=== PATIENT | female | born 1945 | race Two or more races ===

== ENCOUNTER 2023-06-24 06:53 | Inpatient (IN) | payer OTHER ==
[~2023-06-24] VITALS: Ht 157.5 cm; Wt 68.0 kg
[~2023-06-24 06:53] MED LIST: ATORVASTATIN CA20 MG PO; DICLOFENAC-MIS1 EAC3 PO; LOSARTAN-HCTZ1 EAC1 PO
[2023-06-25] MEDS ORDERED: OXYC1TAB9 PO (08:02)
[2023-06-25] MEDS ORDERED: DUI500 PO (08:02)
== END 2023-06-25 09:30 | disposition home or self-care (01) | DRG 483 ==
LOC: CIR.AMB 06:53 → SURG 09:15 → CIR.AMB 09:15 → EDSTATUS 09:15 → CIR.AMB 14:30 → SURG 19:36
PROVIDERS: ADMIT Orthopaedic Surgery Sports Medicine; ATTEND Orthopaedic Surgery Sports Medicine
PROC: 0LS40ZZ Reposition Left Upper Arm Tendon, Open Approach (ICD-10-PCS; 2023-06-24)
PROC: 0RRK00Z Replacement of Left Shoulder Joint with Reverse Ball and Socket Synthetic Substitute, Open Approach (ICD-10-PCS; principal; 2023-06-24 14:30)
DX: M19.012 Primary osteoarthritis, left shoulder (principal); Z20.822 Contact with and (suspected) exposure to COVID-19

== ENCOUNTER 2023-12-09 07:45 | Inpatient (IN) | payer OTHER, MEDICARE ==
[~2023-12-09] VITALS: Ht 152.4 cm; Wt 68.0 kg
[~2023-12-09 07:45] MED LIST changes: +DUI500 PO; +OXYC1TAB9 PO
[2023-12-09 09:08] LABS: PH,URINE 7.5 (5.0-8.0); URINE APPEARANCE Clear; URINE BILIRRUBIN Negative (NEGATIVE); URINE BLOOD Small; URINE COLOR Yellow; URINE GLUCOSE Negative (NEGATIVE); URINE LEUKOCYTE Negative; URINE NITRATE Negative; URINE PROTEIN 30 (NEGATIVE); URINE UROBILINOGEN 0.2 E.U./dl
[2023-12-09] MEDS ORDERED: PLAVIX75 MG PO (09:09)
[2023-12-09] MEDS ORDERED: PENTOXIFYLLINE400 MG PO (09:09)
[2023-12-09] MEDS ORDERED: CARVEDILOL3.125 MG (09:09)
[2023-12-09 09:14] LABS: URINE BACTERIA 17.5 uL (0.0-1933); URINE EPITHELIAL CELLS 3.8 uL (0.0-38.8); URINE RBC 25.4 uL (0.0-20.8)
[2023-12-09 09:28] LABS: URINE WBC 0.7 uL (0.0-23.2)
[2023-12-09 10:01] LABS: INR 0.95; PARTIAL THROMBOPLASTIN TIME 32.5 SECONDS (22.0-34.0)
[2023-12-14] MEDS ORDERED: ROSUVASTATIN CA20 MG (14:36)
[2023-12-14] MEDS ORDERED: GABAPENTIN300 M2 (14:36)
[2023-12-14] MEDS ORDERED: DONEPEZIL HCL10 MG (14:36)
[2023-12-14] MEDS ORDERED: CELECOXIB200 MG (14:36)
[2023-12-14] MEDS ORDERED: NIFEDIPINE ER30 M1 (14:36)
[2023-12-14 17:39] LABS: HEMATOCRIT 37.8 % (36.0-45.00); HEMOGLOBIN 12.7 g/dL (12.0-15.00); RED BLOOD COUNT 3.89 M/uL (4.00-6.00)
[2023-12-15 07:53] LABS: HEMOGLOBIN 11.7 g/dL (12.0-15.00); MEAN CELL VOLUME 95.8 fL (80.00-100.00); MEAN CORPUSCULAR HEMOGLOBIN 33.1 pg (27.00-32.0); MEAN CORPUSCULAR HGB CONC 34.6 g/dl (32.0-36.0); PLATELET COUNT 158 K/uL (150-450); RED BLOOD COUNT 3.55 M/uL (4.00-6.00); RED CELL DISTRIBUTION WIDTH 13.6 % (11.5-14.5)
[2023-12-16] MEDS ORDERED: BACTRIM DS TAB1 EACH PO (06:21)
[2023-12-16] MEDS ORDERED: XARELTO10 MG PO (06:21)
[2023-12-16] MEDS ORDERED: OXYC1TAB9 PO (06:21)
[2023-12-16] MEDS ORDERED: INTEGRA PLUS C1 EACH PO (06:21)
[2023-12-16 08:45] LABS: HEMATOCRIT 31.1 % (36.0-45.00); MEAN CORPUSCULAR HEMOGLOBIN 33.6 pg (27.00-32.0); MEAN CORPUSCULAR HGB CONC 34.6 g/dl (32.0-36.0); PLATELET COUNT 139 K/uL (150-450); RED BLOOD COUNT 3.21 M/uL (4.00-6.00)
[2023-12-16 08:47] LABS: HEMOGLOBIN 10.8 g/dL (12.0-15.00)
== END 2023-12-16 12:08 | disposition home or self-care (01) | DRG 470 ==
LOC: SURG 12-14 06:10 → O/R 12-14 06:10 → SURH 12-14 07:00 → SURG 12-14 16:34
PROVIDERS: ADMIT Orthopaedic Surgery Sports Medicine; ATTEND Orthopaedic Surgery Sports Medicine
PROC: 0SRD0J9 Replacement of Left Knee Joint with Synthetic Substitute, Cemented, Open Approach (ICD-10-PCS; principal; 2023-12-14 07:00)
DX: M17.12 Unilateral primary osteoarthritis, left knee (principal)

== ENCOUNTER 2025-02-06 12:29 | Inpatient (IN) | payer OTHER ==
[~2025-02-06] VITALS: Ht 157.5 cm; Wt 63.5 kg
[~2025-02-06 12:29] MED LIST changes: +BACTRIM DS TAB1 EACH PO; +CARVEDILOL3.125 MG; +CELECOXIB200 MG; +DONEPEZIL HCL10 MG; +GABAPENTIN300 M2; +INTEGRA PLUS C1 EACH PO; +NIFEDIPINE ER30 M1; +PENTOXIFYLLINE400 MG PO; +PLAVIX75 MG PO; +ROSUVASTATIN CA20 MG; +XARELTO10 MG PO
[2025-02-06] MEDS ORDERED: NORVASC10 MG PO (12:53)
[2025-02-06] MEDS ORDERED: TENORMIN25 MG PO (12:53)
[2025-02-06] MEDS ORDERED: TOPROL XL25 M1 PO (12:53)
[2025-02-06 12:59] VITALS: BP 170/86
[2025-02-10 09:26] LABS: RH POSITIVE
[2025-02-13] MEDS ORDERED: TRANEXAMIC ACID 100MG/1ML (1000MG) AMPUL IV ONE ×2 (13:00)
[2025-02-13] MEDS ORDERED: CEFAZOLIN SODIUM 1,000 MG VIAL IV ONE (13:00)
[2025-02-13] MEDS ORDERED: LIDOCAINE HCL 1%/EPINEPHRINE 20ML VIAL IJ SCH (13:00)
[2025-02-13] MEDS ORDERED: METHYLPREDNISOLONE ACETATE 80 MG/ML VIAL IU ONE (13:00)
[2025-02-13] MEDS ORDERED: KETOROLAC TROMETHAMINE 60 MG VIAL IM ONE (13:00)
[2025-02-13] MEDS ORDERED: SUGAMMADEX SODIUM 200 MG/2 ML VIAL IV ONE (15:15)
[2025-02-13] MEDS ORDERED: SODIUM CHLORIDE 0.45 % 1,000 ML IV SCH (15:30)
[2025-02-13] MEDS ORDERED: ONDANSETRON HCL 2 MG/ML VIAL IV PRN (15:30)
[2025-02-13] MEDS ORDERED: MORPHINE SULFATE 4 MG/ML VIAL IV ONE (15:30)
[2025-02-13] MEDS ORDERED: MORPHINE SULFATE 4 MG/ML VIAL IV PRN (15:30)
[2025-02-13] MEDS ORDERED: CEFAZOLIN SODIUM 1,000 MG VIAL IV SCH (18:00)
[2025-02-13 20:14] VITALS: BP 150/68; O2SAT 98
[2025-02-13] MEDS ORDERED: AMLODIPINE BESYLATE 10 MG TABLET PO SCH (21:00)
[2025-02-13] MEDS ORDERED: GENTAMICIN SULFATE 40 MG/ML VIAL IV SCH (21:00)
[2025-02-13 23:16] LABS: HEMOGLOBIN 12.9 g/dL (12.0-15.00); RED BLOOD COUNT 4.05 M/uL (4.00-6.00)
[2025-02-13 23:48] VITALS: BP 137/60; O2SAT 95
[2025-02-14 06:42] LABS: HEMATOCRIT 37.7 % (36.0-45.00); HEMOGLOBIN 12.8 g/dL (12.0-15.00); MEAN CELL VOLUME 94.9 fL (80.00-100.00); MEAN CORPUSCULAR HEMOGLOBIN 32.2 pg (27.00-32.0); MEAN CORPUSCULAR HGB CONC 33.9 g/dl (32.0-36.0); PLATELET COUNT 208 K/uL (150-450); RED BLOOD COUNT 3.97 M/uL (4.00-6.00); RED CELL DISTRIBUTION WIDTH 13.4 % (11.5-14.5)
[2025-02-14 08:00] VITALS: BP 154/64; O2SAT 95
[2025-02-14] MEDS ORDERED: SENNA/DOCUSATE SODIUM 1 TAB TABLET PO SCH (09:00)
[2025-02-14] MEDS ORDERED: ATORVASTATIN CALCIUM 20 MG TABLET PO SCH (09:00)
[2025-02-14] MEDS ORDERED: METOPROLOL SUCCINATE 25 MG TAB.SR.24H PO SCH (09:00)
[2025-02-14] MEDS ORDERED: ATENOLOL 25 MG TABLET PO SCH (09:00)
[2025-02-14] MEDS ORDERED: RIVAROXABAN 10 MG TAB PO SCH (09:00)
[2025-02-14] MEDS ORDERED: PENTOXIFYLLINE 400 MG TABLET.SA PO SCH (09:00)
[2025-02-14] MEDS ORDERED: IRON FUM,PS/FOLIC/BCOMP,C NO.9 1 CAP CAPSULE PO SCH (09:00)
[2025-02-14] MEDS ORDERED: BACITRACIN 28.35 GM OINT.TUBE TOP SCH (09:00)
[2025-02-14] MEDS ORDERED: LOSARTAN/HYDROCHLOROTHIAZIDE 1 UDTAB TABLET PO SCH (09:00)
[2025-02-14] MEDS ORDERED: INTEGRA PLUS C1 EACH PO (09:51)
[2025-02-14] MEDS ORDERED: BACTRIM DS TAB1 EACH PO (09:51)
[2025-02-14] MEDS ORDERED: ACETAMINOPHEN-1 EAC2 PO (09:52)
[2025-02-14] MEDS ORDERED: ACETAMINOPHEN WITH CODEINE 1 UDTAB TABLET PO SCH (12:00)
== END 2025-02-14 10:35 | disposition home or self-care (01) | DRG 483 ==
LOC: O/R 02-13 05:18 → SURG 02-13 05:18 → SURH 02-13 10:30 → SURG 02-13 16:15
PROVIDERS: ADMIT Orthopaedic Surgery Sports Medicine; ATTEND Orthopaedic Surgery Sports Medicine
PROC: 0LS30ZZ Reposition Right Upper Arm Tendon, Open Approach (ICD-10-PCS; 2025-02-13)
PROC: 0PUC0JZ Supplement Right Humeral Head with Synthetic Substitute, Open Approach (ICD-10-PCS; 2025-02-13)
PROC: 0RRJ00Z Replacement of Right Shoulder Joint with Reverse Ball and Socket Synthetic Substitute, Open Approach (ICD-10-PCS; principal; 2025-02-13 10:30)
DX: M19.011 Primary osteoarthritis, right shoulder (principal); M75.21 Bicipital tendinitis, right shoulder